=== PATIENT | female | born 1925 ===

== ENCOUNTER 2016-11-12 14:55 | Emergency (ER) | payer MEDICARE ==
--- NOTE | 2016-11-12 15:46 | ERNOTE ---
Abdominal HPI - Narrative Date of Service: 11/12/16 - General Chief Complaint: Abdominal Pain Time Seen by Provider: 11/12/16 15:26 Source: patient Exam Limitations: no limitations - Immun/Allergies/Home Medications Allergies/Adverse Reactions: Allergies No Known Allergies Allergy (Unverified 11/12/16 15:14) Home Medications: HOME MEDICATIONS ALPRAZolam [Xanax] 0.5 mg PO BID PRN 11/12/16 [Last Taken Unknown] Amiodarone HCl [Cordarone] 200 mg PO DAILY 11/12/16 [Last Taken Unknown] Aspirin 325 mg PO DAILY 11/12/16 [Last Taken Unknown] Omeprazole 20 mg PO DAILY 11/12/16 [Last Taken Unknown] - History of Present Illness Narrative: Pt. comes in with c/o RUQ pain that started 2 days ago and radiates to her back. Pt. denies any SOB, CP, NVD, fever, chills, recent illness, alleviating factors or pre hospital treatment. 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 Review of Systems - Review of Systems Constitutional: Present: no symptoms reported. Absent: fever, chills, weakness , fatigue, malaise EYE: Present: no symptoms reported ENT: Present: no symptoms reported Respiratory: Present: no symptoms reported. Absent: shortness of breath, cough , wheezing Cardiology: Present: no symptoms reported. Absent: chest pain, palpitations, edema Gastrointestinal/Abdominal: Present: abdominal pain. Absent: nausea, vomiting, diarrhea Genitourinary: Present: pain - R flank. Absent: decreased urinary output Musculoskeletal: Present: no symptoms reported. Absent: back pain, joint pain Skin: Present: no symptoms reported Neurological: Present: no symptoms reported. Absent: See HPI, headache, dizziness/light-headedness, numbness, tingling All Other Systems: All systems neg except as marked - Patient's Past Medical History Patient History - Cardiac/Respiratory: No pertinent hx Patient History - Cancer: No Hx of Cancer Patient History - Surgical Procedures: No surgical history - Social History Smoking Status: Never smoker Physical Exam - Physical Exam General Appearance: Present: wd/wn, alert, no apparent distress Eye Exam: Normal inspection: bilateral, PERRL: bilateral, EOMI: bilateral Ears, Nose, Throat: Present: normal ENT inspection, normal pharynx Neck: Present: normal inspection, nontender. Absent: lymphadenopathy (R), lymphadenopathy (L) Respiratory: Present: no respiratory distress, normal breath sounds, no accessory muscle use, chest nontender, lungs clear Cardiovascular/Chest: Present: regular rate, rhythm, no murmur, normal peripheral pulses Gastrointestinal/Abdominal: Present: normal bowel sounds, nontender, nondistended, soft, no organomegaly, hernia - Umbilical reduces easily Back Exam: Present: normal range of motion, no vertebral tenderness, CVA tenderness (R) Extremity Exam: Present: normal inspection, non-tender, normal range of motion, no edema Neurological Exam: Present: alert, oriented, normal mood/affect, no motor/ sensory deficits Skin Exam: Present: normal color, warm/dry. Absent: pallor, skin rash ED Progress - Results and Orders Patient's Lab Results:: I have reviewed the patient's lab results. - Vital Signs Patient's Vital Signs:: I have reviewed the patient's vital signs. Vital Signs: Vital Signs 11/12/16 15:03 Temperature 36.6 C Pulse Rate 58 L Respiratory 14 Rate Blood Pressure 150/70 O2 Sat by Pulse 95 Oximetry - X-Ray X-Ray #1 X-Ray: abdomen Interpretation: Reviewed by me X-ray Comments: moderate stool retention. Non obstructive bowel gas pattern - CT/Ultrasound CT/Ultrasound Narrative: R kidney scarring no acute - Progress/Reassessment Chief Complaint: Abdominal Pain Departure - Departure Clinical Impression: Dehydration Constipation Qualifiers: Constipation type: slow transit constipation Qualified Code(s): K59.01 - Slow transit constipation Disposition: Home self-care Condition: Good Instructions: Constipation, Adult, [id number], Dehydration, Elderly, Easy-to- Read Additional Instructions: Please follow up with primary provider in 2-3 days if not improved. Please increase water intake to 8- 8oz glasses a day and Please start milk of magnesia daily for constipation. Referrals: Dorene Jimenez FNP [Primary Care Provider] -
--- OUTSIDE RECORDS SUMMARY | 2016-11-12 15:54 | XMS REPORT | Continuity of Care Document ---
:1925 Author Organization [facility] [place] [address] Care Team Providers Name Role Phone Mohit Edmond Primary Care Provider [phone] Source Comments This disclosure is being made pursuant to the [employer] program and may contain all information available regarding this patient.[facility] Active Allergies and Adverse Reactions No Known Allergies Current Medications Be aware that medications may not be up to date as of this document. Alwaysverify current medications with the patient. Prescription Sig. Disp. Refills Start Date End Date Status amiodarone (PACERONE) Take 200 mg by Active 200 MG tablet mouth daily. diltiazem (DILACOR XR) Take 240 mg by Active 240 MG 24 hr capsule mouth daily. omeprazole 20 MG tablet Take 20 mg by Active mouth every morning before breakfast. acetaminophen (TYLENOL) Take 325-650 mg Active 325 MG tablet by mouth every 4 (four) hours as needed for Pain. magnesium hydroxide Take 30 mLs by Active (MILK OF MAGNESIA) 400 mouth daily as MG/5ML suspension needed for Constipation. aspirin 81 MG EC tablet Take 81 mg by Active mouth daily. ALPRAZolam (XANAX) 0.5 TAKE 1 TABLET BY 60 tablet 2 09/29/2016 Active MG tablet MOUTH TWICE DAILY Active Problems Problem Noted Date Hypertension Most Recent Encounters Date Type Specialty Providers Description 09/28/2016 Refill Family Medicine Mohit Edmond MD 08/28/2016 Refill Family Medicine Sheila Lawson RMA 08/28/2016 Refill Family Medicine Mohit Edmond MD 08/26/2016 Refill Family Medicine Hortencia Valerio RMA 08/26/2016 Refill Family Medicine Mohit Edmond MD 08/21/2016 Abstract Family Medicine Josie Polanco, [facility] CONSULTANT Social History Tobacco Use Types Packs/Day Years Used Date Never Smoker Alcohol Use Drinks/Week oz/Week Comments No Plan of Care Health Maintenance Due Date Last Done Comments Tetanus/Pertussis (1 - Tdap) 1946 Well Adult Visit 1977 Zoster Vaccine 60+ 1987 Bone Density 1992 Pneumococcal Low/Medium Risk 65+ (1 of 2 - PCV13) 1992 Influenza Immunization (#1) 2016 Results from Last 3 Months Not on file
[2016-11-12 15:55] LABS: Hematocrit 41.5 % (37.0-47.0); Hemoglobin 13.4 gm/dL (12.5-16.0); Mean Cell Volume 86.8 fl (78-100); Mean Corpuscular Hgb Conc 32.3 g/dl (32-36); Mean Platelet Volume 9.3 fl (6.0-9.5); Neutrophil % 63.5 % (42-75.0); Platelet Count 250 K/mm3 (150-450); Red Blood Count 4.78 M/mm3 (4.2-5.4); Red Cell Distribution Width 18.4 % (11.5-14.0); White Blood Count 6.2 K/mm3 (4.0-10.5)
--- OUTSIDE RECORDS SUMMARY | 2016-11-12 15:55 | XMS REPORT | Continuity of Care Document ---
:1925 Author Organization [facility] ([facility]) Address [address] [place] [address] Phone [phone] Care Team Providers Name Role Phone Dorene Jimenez Primary Care Provider [phone] Source Comments This disclosure is being made pursuant to the Care Everywhere program, applicable federal and state laws, and may not contain all informaitonavailable regarding this patient.[facility] ([facility]) Active Allergies and Adverse Reactions No Known Allergies Current Medications Prescription Sig. Disp. Refills Start Date End Date Status ALPRAZolam 0.5 mg Take 1 tablet (0.5 60 tablet 0 04/28/2016 Active tablet mg total) by mouth 2 times daily. diltiazem 240 mg ER Take 1 capsule 04/30/2016 Active capsule (240 mg total) by mouth daily. amiodarone 200 mg Take 1 tablet (200 0 05/12/2016 Active tablet mg total) by mouth daily. Begin Amiodarone on 05/12 after completing Amiodarone load on 05/11 aspirin 325 mg EC Take 1 tablet (325 30 tablet 11 04/30/2016 Active tablet mg total) by mouth daily. omeprazole 20 mg Take 20 mg by Active enteric coated capsule mouth daily. acetaminophen 325 mg Take 325 mg by Active tablet mouth every 4 hours as needed. Active Problems Patient Care Coordination Note GOALS OF CARE AND TREATMENT PREFERENCES Patients Communication Style/Preference per patient: open/direct/ straightforward Diagnosis: Intraaortic hematoma Prognosis: Guarded Goal(s) of Care: comfort and relief of symptoms Is the patient an inpatient? Yes. How did the team arrive at the current code status? Discussion with patient Code status is: DNR Additional remarks: Patient would like to discuss this with her son so he is aware that if she dies she wouldn't want to be resuscitated Patient able to make own decisions?: Yes Patient's Goals of Care and communication style preference were communicated to attending staff. 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 Anxiety 04/23/2016 Essential hypertension, benign 04/23/2016 Calculus of kidney 04/02/2007 Resolved Problems Problem Noted Date Resolved Date Atrial flutter 04/30/2016 04/30/2016 Mitral valve prolapse 04/23/2016 05/19/2016 Most Recent Encounters Date Type Specialty Providers Description 10/21/2016 Office Visit Heart and Vascular Derian Berrios, Chief Comp: Patient MD Reported Reason For Visit 09/30/2016 Telephone Patient Services Sharri Esposito, RN Chief Comp: Other 08/25/2016 Office Visit Heart and Vascular Severiano Fan, Chief Comp : Patient MD Reported Reason For Visit Social History Tobacco Use Types Packs/Day Years Used Date Never Smoker Last Filed Vital Signs Vital Sign Reading Time Taken Blood Pressure 105/54 05/19/2016 12:31 PM [employer] Pulse 52 05/19/2016 12:31 PM [employer] [employer] Temperature 36.4 C (97.5 F) 04/30/2016 9:14 AM CDT Respiratory Rate 16 05/19/2016 12:31 PM [employer] Height 1.626 m (5' 4") 04/25/2016 5:25 AM CDT Weight 54.4 kg (119 lb 14.9 oz) 04/30/2016 6:18 AM CDT Body Mass Index 20.58 04/30/2016 6:18 AM CDT Oxygen Saturation 93% 04/30/2016 9:14 AM CDT Plan of Care Health Maintenance Due Date Last Done Comments Hepatitis B Vaccine (1 of 3 - Primary Series) 1925 Tdap Vaccine 1938 Lipid Disorder Screening 1945 Td Vaccine 1945 Zoster Vaccine 1987 Pneumococcal Vaccine (1 of 2 - PCV13) 1992 Influenza Vaccine: Seasonal (Season Ended) 2017 Results from Last 3 Months Not on file
[2016-11-12 16:00] LABS: Urine Bilirubin Negative (NEGATIVE); Urine Blood Negative /ul (NEGATIVE); Urine Ketone Negative (NEGATIVE); Urine Nitrite Negative (NEGATIVE); Urine Protein Negative (NEGATIVE); Urine Specific Gravity 1.015 SP.GR. (1.005-1.010); Urine Urobilinogen Normal (NORMAL)
[2016-11-12 16:06] LABS: Urine Appearance Clear; Urine Bacteria None Seen; Urine Color Yellow; Urine RBC None Seen /hpf (0-5); Urine WBC None Seen /hpf (0-5)
[2016-11-12 16:10] LABS: Albumin * 3.9 gm/dl (3.4-5.0); Anion Gap 14.5 mmol/L (6.8-13.8); BUN/Creatinine Ratio 26.9 (9.0-21.6); Bilirubin, Total 0.4 mg/dL (0.0-1.1); Ca. Corrected For Albumin 9.1 mg/dL (8.4-10.2); Calcium * 9.3 mg/dL (7.9-10.9); Carbon Dioxide 27.3 mmol/L (24-32.6); Potassium 4.8 mmol/L (3.4-4.6); Total Protein 7.8 gm/dL (6.2-8.2)
[2016-11-12 17:16] VITALS: BP 104/47
== END 2016-11-12 17:13 | disposition home or self-care (01) ==
LOC: ER 14:55
DX: K59.01 Slow transit constipation (principal); E86.0 Dehydration